=== PATIENT | female | born 1975 | race Caucasian/White ===

== ENCOUNTER → 2016-04-01 | Outpatient (CLI) | payer MEDICAID ==
--- NOTE | 2016-04-01 15:50 | MA ---
Screening Digital Mammogram With iCAD Analysis Clinical Indications: 40-year-old female with no family history of breast cancer who presents for [facility] mammographic evaluation. Technique: Standard cephalocaudal projections are obtained. Digital breast tomosynthesis was performe d in the MLO projection with reconstruction at 1.0 mm slice thickness and composite MLO views reconst ructed. This examination is processed by the iCAD computer aided detection system. A cutaneous marker has been placed over a mole on the skin surface of the left breast. Comparison: None. Breast Density: Type B; Scattered fibroglandular densities. Findings: CAD was reviewed, and is negative. There is a round parenchymal asymmetry in the superior p ortion of the left breast, adjacent to some parenchymal heterogeneity (possibly noted in the orthogon al craniocaudal view, just medial of midline). Spot compression views are suggested and if persistent , ultrasound could be considered. The latter will be left to the discretion of the interpreting radio logist. There are no suspicious clustered microcalcifications. Impression: Needs additional imaging. Incomplete mammography. BI-RADS category 0. Recommendation: Supplementary spot compression views of the left breast, and possible sonography (at the discretion of the interpreting radiologist). Recommendation: Routine mammographic screening in one year. [facility] will send a result letter to the patient. Negative mammography should not preclude additional workup of a clinically suspicious finding. The patient's information is entered into a reminder system with a target due date for her next mammo gram.
== END ==
LOC: FIMAGING 13:09
DX: Z12.31 Encounter for screening mammogram for malignant neoplasm of breast (principal)
CPT/HCPCS: G0202

== ENCOUNTER → 2016-04-10 | Outpatient (CLI) | payer MEDICAID ==
--- NOTE | 2016-04-10 18:24 | US ---
Transabdominal and Transvaginal Pelvic Ultrasound History: 40-year-old with history of ovarian cysts. LMP April 09, 2016. Comparison: CT abdomen pelvis September 17, 2015, pelvic ultrasound September 11, 2015. Findings: Transabdominal: The uterus measures 8.2 x 5.5 x 3.7 cm. The bladder is normal. Transvaginal: No fibroids are present. The endometrium is homogeneous and measures 2 mm. The left ova ry measures 1.8 x 2.2 x 2.2 cm. The right ovary measures 2.2 x 2.7 x 3.3 cm. Scattered small follicl es are present. No adnexal masses are identified. Normal arterial blood flow is documented to both ov wojciech by Doppler ultrasound. There is no free fluid. Impression: Normal pelvic ultrasound.
== END ==
LOC: FIMAGING 12:37
PROVIDERS: ATTEND Advanced Practice Midwife
DX: Z00.00 Encounter for general adult medical examination without abnormal findings (principal); Z87.42 Personal history of other diseases of the female genital tract; Z11.3 Encounter for screening for infections with a predominantly sexual mode of transmission

== ENCOUNTER → 2016-04-18 | Outpatient (CLI) | payer MEDICAID ==
--- NOTE | 2016-04-18 09:59 | MA ---
Diagnostic Digital Left Mammography Clinical History: 40-year-old female who had a baseline screening mammogram with an equivocal asymmet ry seen posteriorly in the left breast on the tomosynthesis views. Technique: Spot compression craniocaudal and MLO views of the left breast, true mediolateral, and rol led medial and rolled lateral craniocaudal views were obtained and compared to a previous study of Antonio sanchez 2016. Additionally, this examination was processed by the [facility] computer-aided detection sys tem. Breast Density: Type B. Scattered fibronodular densities. CAD Evaluation: Negative. Findings: On the small paddle spot compression MLO view, there is no persistent parenchymal asymmetry , nor is one identified on the true mediolateral view, consistent with spurious superimposition of no rmal fibroglandular structures. Impression: Benign mammography. BI-RADS category 2. Recommendation: Routine annual mammographic screening. [facility] will send a result letter to the patient. Negative mammography should not preclude additional workup of a clinically suspicious finding. The patient's information is entered into a reminder system with a target due date for her next mammo gram.
== END ==
LOC: FIMAGING 09:15
PROVIDERS: ATTEND Advanced Practice Midwife
DX: R92.2 Inconclusive mammogram (principal)
CPT/HCPCS: G0206

== ENCOUNTER 2016-05-14 14:44 | Emergency (ER) | payer MEDICAID ==
[2016-05-14 15:08] VITALS: RESP 16; TEMP 98.6; O2SAT 96
--- NOTE | 2016-05-14 15:49 | EDPHY ---
H & P Time Seen by Provider: 05/14/16 15:40 HPI/ROS: CHIEF COMPLAINT: HISTORY OF PRESENT ILLNESS: The patient is a 40-year-old female who presents after REVIEW OF SYSTEMS: A complete 10-point review of systems was performed and is negative except for those items mentioned in the HPI. Past Medical/Surgical History: Asthma, sinus drainage surgery. Social History: Nonsmoker. Smoking Status: Never smoked Physical Exam: General Appearance: Alert, no distress Eyes: Pupils equal and round, no conjunctival pallor or injection ENT, Mouth: Mucous membranes moist Neck: Normal inspection Respiratory: Lungs are clear to auscultation Cardiovascular: Regular rate and rhythm Gastrointestinal: Abdomen is soft and non-tender Neurological: A&O, nonfocal, normal gait Skin: Warm and dry, no rash Extremities: Nontender, no pedal edema Psychiatric: Mood and affect normal Constitutional: Initial Vital Signs Temperature (C) 37 C 05/14/16 15:05 Heart Rate 77 05/14/16 15:05 Respiratory Rate 16 05/14/16 15:05 Blood Pressure 127/82 H 05/14/16 15:05 O2 Sat (%) 96 05/14/16 15:05 O2 Delivery Mode Room Air Allergies/Adverse Reactions: No Known Allergies Allergy (Verified 05/14/16 15:08) Home Medications: Medication Instructions Recorded Ondansetron Odt [Zofran Odt] 4 mg PO Q4PRN PRN #15 tab 09/18/15 oxyCODONE/APAP 5/325 [Percocet 1 tab PO Q6 #15 tab 09/18/15 5/325] Cyclobenzaprine 05/14/16 Diazepam [Valium] 5 mg PO Q6 #11 tab 05/14/16 Ibuprofen 600 mg PO Q6 #15 tablet 05/14/16 Meloxicam 05/14/16 Vit D3/Folic Acid/B2/B6/B12 05/14/16 oxyCODONE/APAP 5/325 [Percocet 1 - 2 tab PO Q4PRN PRN #15 tab 05/14/16 5/325 (*)] Medical Decision Making - Data Points Medications Given: Discontinued Medications Oxycodone/Acetaminophen (Percocet 5/325) 2 tab PO EDNOW ONE Stop: 05/14/16 16:51 Last Admin: 05/14/16 16:52 Dose: 2 tab Departure - Departure Disposition: Home, Routine, Self-Care Clinical Impression: Cervical strain, acute, Acute thoracic back pain Condition: Good Instructions: Back Pain (ED), Acute Neck Pain (ED) Additional Instructions: Return with increasing pain, weakness, numbness, fever or any other concerns. Referrals: OLIVIER CORDERO [Other] - 1-2 days without fail Roxanne Bhatia MD [Medical Doctor] - 5-7 days, call for appt. Prescriptions: Diazepam [Valium] 5 mg PO Q6 #11 tab Ibuprofen 600 mg PO Q6 #15 tablet oxyCODONE/APAP 5/325 [Percocet 5/325 (*)] 1 - 2 tab PO Q4PRN PRN #15 tab PRN Reason: For Moderate To Severe Pain Report Scribed for: Lina Fay Report Scribed by: Ignacio Vora Date of Report: 05/14/16 Time of Report: 15:44 Physician Review and Approval Statement: 05/14/16 15:45 Portions of this note were transcribed by a biomedical technician. I personally performed a history, physical exam, medical decision making, and confirmed accuracy of information the transcribed note.
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
[2016-05-14] MEDS ORDERED: OXYCODONE/APAP 5/325 TAB PO ONE (16:50)
[2016-05-14 17:17] VITALS: BP 131/86; PULSE 76
== END 2016-05-14 17:16 | disposition home or self-care (01) ==
DX: S29.9XXA Unspecified injury of thorax, initial encounter (principal); S16.1XXA Strain of muscle, fascia and tendon at neck level, initial encounter; J45.909 Unspecified asthma, uncomplicated; V89.2XXA Person injured in unspecified motor-vehicle accident, traffic, initial encounter; Y92.410 Unspecified street and highway as the place of occurrence of the external cause; Y93.89 Activity, other specified

== ENCOUNTER 2017-07-05 12:16 | Emergency (ER) | payer MEDICAID ==
[2017-07-05 12:24] VITALS: BP 126/87
--- NOTE | 2017-07-05 13:06 | EDPHY ---
H & P Time Seen by Provider: 07/05/17 12:39 HPI/ROS: CHIEF COMPLAINT: Anxiety, unable to sleep HISTORY OF PRESENT ILLNESS: 41-year-old female drove to the ER complaining of increasing anxiety by and large related to personal and professional issues. Denies suicidal or homicidal ideation. She recently established care at [facility]. She was seen at the crisis Center few days ago. She has an intake appointment in 1 week. Denies self-injurious behavior PHYSICAL EXAM (Prior to examination, patient consented to physical exam, hands were washed and my usual and customary physical exam procedures followed) 1) GENERAL: Well-developed, well-nourished, alert and oriented. Appears anxious. 2) HEAD: Normocephalic 3) HEENT: sclera anicteric 4) LUNGS: Breathing comfortably. Smoking Status: Never smoked Constitutional: Initial Vital Signs Temperature (C) 36.6 C 07/05/17 12:21 Heart Rate 91 07/05/17 12:21 Respiratory Rate 18 07/05/17 12:21 Blood Pressure 126/87 H 07/05/17 12:21 O2 Sat (%) 97 07/05/17 12:21 O2 Delivery Mode Room Air Allergies/Adverse Reactions: No Known Allergies Allergy (Verified 07/05/17 12:17) Home Medications: Medication Instructions Recorded Cyclobenzaprine 05/14/16 Albuterol 07/05/17 Baclofen 07/05/17 LORazepam [Ativan 1 mg (RX)] 1 mg PO Q6 PRN #7 tab 07/05/17 LYRICA 07/05/17 Vitamin D3 07/05/17 MDM/Departure - MDM ED Course/Re-evaluation: Patient denies suicidal or homicidal ideation. I believe her to have decision- making capacity at this time. Id a not think she meets criteria for an M1 hold at this time. We discussed anxiolytic therapy. She is agreeable with prescription. I recommend she keep her appointment at [facility] next week (today is ). She is agreeable to this plan. Usual and customary psychiatric precautions and instructions provided. Care of patient under supervision of secondary supervising physician Dr Vitale. - Depart Disposition: Home, Routine, Self-Care Clinical Impression: Anxiety Condition: Good Instructions: Anxiety (ED) Additional Instructions: Return to the ER immediately if you experience thoughts of hurting yourself, thoughts of hurting other people, thoughts of killing other people or killing yourself. Prescriptions: LORazepam [Ativan 1 mg (RX)] 1 mg PO Q6 PRN #7 tab PRN Reason: Anxiety Referrals: [facility] [Clinic] - 2-3 days without fail
== END 2017-07-05 13:20 | disposition home or self-care (01) ==
DX: F41.9 Anxiety disorder, unspecified (principal)

== ENCOUNTER → 2017-07-06 | Outpatient (CLI) | payer MEDICAID | LOC: FIMAGING 14:35 | PROVIDERS: ATTEND Physician Assistant | DX: Z12.31 Encounter for screening mammogram for malignant neoplasm of breast (principal) ==

== ENCOUNTER → 2017-11-26 | Outpatient (CLI) | payer MEDICAID ==
[~2017-11-26] MED LIST: GADOBUTROL 10 ML VIAL IVP ONE
== END ==
LOC: FIMAGING 13:32
PROVIDERS: ATTEND Psychiatry & Neurology Neurology
DX: R20.0 Anesthesia of skin (principal); R20.2 Paresthesia of skin; G54.8 Other nerve root and plexus disorders
CPT/HCPCS: A9585

== ENCOUNTER 2018-05-19 17:03 | Emergency (ER) | payer MEDICAID | END 2018-05-19 17:37 | disposition home or self-care (01) ==

== ENCOUNTER 2018-05-25 17:51 | Emergency (ER) | payer MEDICAID ==
--- NOTE | 2018-05-25 19:39 | EDPHY ---
H & P Time Seen by Provider: 05/25/18 18:54 HPI/ROS: CHIEF COMPLAINT: Continued urticaria and itching HISTORY OF PRESENT ILLNESS: 42-year-old female seen the ER few days ago for urticaria, started on 20 mg prednisone twice daily presents to the ER complaining of continued urticaria. Today is Sunday. She has an appointment with [facility] allergy immunology on Sunday, presents to the ER complaining of continued itching. Denies respiratory complaints. Denies chest pain. Denies dyspnea. Denies genitalia lesions. Denies intraoral lesions. Denies ocular irritation. REVIEW OF SYSTEMS: 10 systems reviewed and negative with the exception of the elements mentioned in the history of present illness PAST MEDICAL & SURGICAL HISTORY: Asthma SOCIAL HISTORY:Works at [employer] nonsmoker PHYSICAL EXAM (Prior to examination, patient consented to physical exam, hands were washed and my usual and customary physical exam procedures followed) 1) GENERAL: Well-developed, well-nourished, alert and oriented. Appears to be in no acute distress. 2) HEAD: Normocephalic, atraumatic 3) HEENT: Pupils equal, round, reactive to light bilaterally. Sclera anicteric. No injection Nasopharynx, oropharynx, clear, no lesions. Moist Mucous membranes. Ears bilaterally with normal tympanic membranes. 4) NECK: Full range of motion, no meningeal signs. 5) LUNGS: Clear auscultation bilaterally, no wheezes, no rhonchi, no retractions. 6) HEART: Regular rate and rhythm, no murmur, no heave, no gallop. 7) ABDOMEN: No guarding, no rebound, no focal tenderness, negative McBurney's, negative Dao's, negative Rovsing's, negative peritoneal sign, 8) MUSCULOSKELETAL: Moving all extremities, no focal areas of tenderness, no obvious trauma. No peripheral edema or discoloration. 9) BACK: No CVA tenderness, no midline vertebral tenderness, no fluctuance, no step-off, no obvious trauma, no visual or palpable abnormality. 10) SKIN: Multiple discrete urticaria lesions. 11) Psychiatric: Patient is oriented X 3, there is no agitation. DIFFERENTIAL DIAGNOSIS: In no particular order including but not limited to urticaria, anaphylaxis, contact dermatitis Smoking Status: Never smoked Constitutional: Initial Vital Signs Temperature (C) 37.0 C 05/25/18 18:03 Heart Rate 67 05/25/18 18:03 Respiratory Rate 16 05/25/18 18:03 Blood Pressure 132/82 H 05/25/18 18:03 O2 Sat (%) 97 05/25/18 18:03 O2 Delivery Mode Room Air Allergies/Adverse Reactions: No Known Allergies Allergy (Verified 05/19/18 17:07) Home Medications: Medication Instructions Recorded Cyclobenzaprine 05/14/16 Albuterol 07/05/17 LORazepam [Ativan 1 mg (RX)] 1 mg PO Q6 PRN #7 tab 07/05/17 LYRICA 07/05/17 Vitamin D3 07/05/17 Effexor Xr 10/30/17 Xanax 10/30/17 predniSONE [prednisone 20mg (RX)] 20 mg PO Q12 #14 tab 05/19/18 Famotidine [Pepcid] 20 mg PO BID #10 tablet 05/25/18 diphenhydrAMINE [Benadryl 25 MG 25 mg PO Q6 #15 tab 05/25/18 (*)] methylPREDNISolone [Medrol Dose 4 mg PO DAILY #1 ea 05/25/18 [place]] MDM/Departure - MDM ED Course/Re-evaluation: Doubt anaphylaxis. At this time I recommended H1 H2 blockers, transition patient to Medrol Dosepak. Today is Sunday. She has appoint with her toll settlement clerk on Sunday. Recommend she keep this appointment. No indication for epinephrine at this time. No indication for hospitalization at this time. Airway is protected. She feels comfortable being discharged. Patient feels comfortable being discharged. All questions and concerns addressed by myself. Patient given my usual and customary discharge precautions and instructions regarding their clinical impression. Care of patient under supervision of [ secondary] supervising physician [ ] [ who independently evaluated patient][ with whom I discussed case]. - Depart Disposition: Home, Routine, Self-Care Clinical Impression: Urticaria Condition: Good Instructions: Urticaria (ED) Additional Instructions: Return to the ER if you develop shortness of breath, difficulty breathing, or any other symptoms that concern you. Keep her appointment with [facility] allergy immunology on Sunday. Stand Alone Forms: Work Excuse Prescriptions: diphenhydrAMINE [Benadryl 25 MG (*)] 25 mg PO Q6 #15 tab Famotidine [Pepcid] 20 mg PO BID #10 tablet methylPREDNISolone [Medrol Dose [place]] 4 mg PO DAILY #1 ea Referrals: Keep, your appointment with [facility] allergy on Sunday [Other] - As per Instructions
[2018-05-25 20:02] VITALS: BP 124/70
== END 2018-05-25 20:02 | disposition home or self-care (01) ==
DX: L50.9 Urticaria, unspecified (principal); Z79.52 Long term (current) use of systemic steroids